=== PATIENT | female | born 1985 | race Asian ===

== ENCOUNTER 2017-01-03 21:46 | Emergency (ER) | payer OTHER ==
[2017-01-03] MEDS ORDERED: NS 0.9% 1000 ML* 1,000 ML IV ONE (23:10)
[2017-01-03 23:22] VITALS: BP 102/60
--- NOTE | 2017-01-04 00:39 | UC ---
I, Eliu,Nic, scribed for Nayeli Jimenez DO on 01/03/17 at 2251 . Abdominal Pain Female HPI - HPI Summary HPI Summary: This 31 y/o female presents to [facility] for gradually worsening RUQ abd pain that started 2 days ago and worse today. Pt reports n/v/d 3 days ago and another bout of watery, explosive diarrhea today. Two episodes of n/v 3 days ago. No blood noted in stool. 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 Ambulation or bumpy road do not make the pain worse. Pt does report subjective fever today and headache. Temperature of 100.1 F is noted at triage. FHx is positive for HTN and DM. Plan of care involving transfer to [facility] is discussed. Ambulance ride is strongly recommended. Pt recently relocated to [place], [place], and she does not know the location of the [facility] and does not have insurance. Plan of care is discussed. She works as professor at [employer]. - History of Current Complaint Chief Complaint: UCAbdominalPain Stated Complaint: ABD PAIN Time Seen by Provider: 01/03/17 22:04 Hx Obtained From: Patient, Medical Records Hx Last Menstrual Period: November 20, 2016 Onset/Duration: Sudden Onset, Lasting Days - 3 days ago, Still Present Timing: Constant Severity Initially: Moderate Severity Currently: Severe Pain Intensity: 9 Location: Discrete At: RUQ, Discrete At: RLQ Radiates: No Character: Sharp Aggravating Factor(s): Nothing Alleviating Factor(s): Nothing Associated Signs and Symptoms: Positive: Fever, Nausea, Vomiting, Diarrhea - 3 episodes in 3 days. Negative: Blood in Stool Allergies/Adverse Reactions: Allergies Allergy/AdvReac Type Severity Reaction Status Date / Time Latex Allergy Rash Verified 01/03/17 22:16 PMH/Surg Hx/FS Hx/Imm Hx Previously Healthy: Yes - Surgical History Surgical History: Yes Surgery Procedure, Year, and Place: tumor on ovary removed Nov 2010 - Family History Known Family History: Positive: Hypertension, Diabetes - Social History Occupation: Employed Full-time Alcohol Use: None Substance Use Type: None Smoking Status (MU): Never Smoked Tobacco Review of Systems Constitutional: Fever Skin: Negative Eyes: Negative ENT: Negative Respiratory: Negative Cardiovascular: Negative Gastrointestinal: Abdominal Pain, Vomiting, Diarrhea Genitourinary: Negative Motor: Negative Neurovascular: Negative Musculoskeletal: Negative Neurological: Negative Psychological: Negative All Other Systems Reviewed And Are Negative: Yes Physical Exam Triage Information Reviewed: Yes Appearance: Well-Appearing, Well-Nourished, Pain Distress - mod to severe Vital Signs: Initial Vital Signs Temp 100.1 F 01/03/17 22:06 Pulse 91 01/03/17 22:06 Resp 18 01/03/17 22:06 BP 99/60 01/03/17 22:06 Pulse Ox 98 01/03/17 22:06 Vital Signs Reviewed: Yes Eyes: Positive: Conjunctiva Clear. Negative: Discharge ENT: Positive: Hearing grossly normal Neck: Positive: Supple, Nontender Respiratory: Positive: Lungs clear, Normal breath sounds, No respiratory distress, No accessory muscle use Cardiovascular: Positive: RRR, No Murmur Abdomen Description: Positive: Soft, Guarding, Other: - diffusely tender most notable at RLQ. Positive for rebound tenderness. Negative psoas and obturator signs.. Negative: CVA Tenderness (R), CVA Tenderness (L), Distended Musculoskeletal: Positive: Strength Intact Neurological: Positive: Alert, Muscle Tone Normal Psychological: Positive: Age Appropriate Behavior Skin Exam: Normal, Other - Warm, Dry, Color Normal Abd Pain Female Course/Dx - Differential Dx/Diagnosis Differential Diagnosis: Appendicitis, Constipation, Gall Bladder Disease, Renal Colic, Urinary Tract Infection Provider Diagnoses: abd pain unknown jignesh - r/o appy - Physician Notification/Consults Discussed Patient Care With: Dioni Rodney (ERP at [facility]) at 2310 PM Time Discussed With Above Provider: 23:10 Instructed by Provider To: Transfer Discharge - Discharge Plan Condition: Stable Disposition: TRANS HIGHER L OF CARE FAC Referrals: Non Staff,Doctor [Primary Care Provider] - The documentation as recorded by the Eliu barclay Soohyun accurately reflects the service I personally performed and the decisions made by , Nayeli Jimenez DO.
== END 2017-01-03 23:35 | disposition short-term general hospital (02) ==
LOC: UCEAST 21:46
DX: R10.11 Right upper quadrant pain (principal); R50.9 Fever, unspecified; R11.2 Nausea with vomiting, unspecified; R19.7 Diarrhea, unspecified; Z32.02 Encounter for pregnancy test, result negative
CPT/HCPCS: 81002; 81025; 87086; 99203; G0463

== ENCOUNTER 2017-01-04 00:11 | Emergency (ER) | payer SELFPAY ==
--- NOTE | 2017-01-04 00:47 | ED ---
Abdominal Pain/Female - HPI Summary HPI Summary: Patient is referred from [facility] for three days of abdominal pain that has become progressively worse. The pain has varied from RLQ to periumbilical over the days , with accompanying nausea, two episodes of diarrhea and a temp. of 100. Her son has had a stomach bug, so at first she thought she might have this, but her pain has become bad enough that she sought evaluation. She has not had pain like this before. - History of Current Complaint Chief Complaint: EDAbdPain Stated Complaint: XFER FROM [facility] Time Seen by Provider: 01/04/17 00:26 Hx Obtained From: Patient Hx Last Menstrual Period: November 20, 2016 ?: No Onset/Duration: Gradual Onset Timing: Constant Severity Initially: Mild Severity Currently: Severe Pain Intensity: 8 Location: Discrete At: RLQ, Umbilical Radiates: No Character: Sharp Aggravating Factor(s): Nothing Alleviating Factor(s): Nothing Associated Signs and Symptoms: Positive: Fever, Decreased Appetite, Nausea, Diarrhea Allergies/Adverse Reactions: Allergies Allergy/AdvReac Type Severity Reaction Status Date / Time Latex Allergy Rash Verified 01/03/17 22:16 PMH/Surg Hx/FS Hx/Imm Hx Previously Healthy: Yes - Cancer History Cancer Type, Location and Year: tumor on right 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 Negative: Chills, Fatigue Negative: Chest Pain Negative: Shortness Of Breath Positive: Abdominal Pain, Diarrhea, Nausea Negative: Myalgia Negative: Headache, Weakness, Paresthesia All Other Systems Reviewed And Are Negative: Yes Physical Exam Triage Information Reviewed: Yes Vital Signs On Initial Exam: Initial Vitals Temp Pulse Resp BP Pulse Ox 99.7 F 75 18 105/57 98 01/04/17 00:14 01/04/17 00:14 01/04/17 00:14 01/04/17 00:14 01/04/17 00:14 Vital Signs Reviewed: Yes Appearance: Positive: Well-Appearing, Well-Nourished, Pain Distress Skin: Positive: Warm, Skin Color Reflects Adequate Perfusion, Dry, Tender Head/Face: Positive: Normal Head/Face Inspection Eyes: Positive: EOMI, RUBÉN, Conjunctiva Clear ENT: Positive: Hearing grossly normal, Pharynx normal Neck: Positive: Supple, Nontender, No Lymphadenopathy Respiratory/Lung Sounds: Positive: Clear to Auscultation, Breath Sounds Present Cardiovascular: Positive: RRR Abdomen Description: Positive: Soft, Mc[place] Tenderness. Negative: Nontender - TTP periumbilical and RLQ with positive rebound, CVA Tenderness (R) , CVA Tenderness (L), Distended, Guarding, Hepatomegaly, Peritoneal Signs, Pulsatile Mass, Splenomegaly Bowel Sounds: Positive: Present Musculoskeletal: Negative: Edema Left, Edema Right Neurological: Positive: Sensory/Motor Intact, Alert, Oriented to Person Place, Time, NV Bundle Intact Distally Psychiatric: Positive: Affect/Mood Appropriate AVPU Assessment: Alert Diagnostics - Vital Signs Vital Signs Temp Pulse Resp BP Pulse Ox 01/04/17 00:14 99.7 F 75 18 105/57 98 - Laboratory Result Diagrams: 01/04/17 01:14 01/04/17 01:14 Lab Statement: Any lab studies that have been ordered have been reviewed, and results considered in the medical decision making process. - CT No standard instances CT Interpretation: Positive (See Comments) - ovarian cyst CT Interpretation Completed By: Radiologist Abdominal Pain Fem Course/Dx - Diagnoses Differential Diagnosis: Positive: Appendicitis, Bowel Obstruction, Constipation , Diverticulitis, Gall Bladder Disease, Hepatitis, Irritable Bowel Syndrome, Ovarian Cyst, Pancreatitis, , Renal Colic, Urinary Tract Infection Provider Diagnoses: Right ovarian cyst - Provider Notifications Discussed Care Of Patient With: Patient care signed out to Dr. Vera. Time Discussed With Above Provider: 02:00 Discharge - Discharge Plan Condition: Stable Disposition: HOME Patient Education Materials: Ovarian Cyst (ED) Referrals: Non Staff,Doctor [Primary Care Provider] - 2 Days Additional Instructions: Please follow up with your primary care physician regarding your visit to the emergency department today. Return to the emergency department with any new or recurring symptoms.
[2017-01-04] MEDS ORDERED: Ondansetron INJ* 2 MG/ML VIAL IV ONE (00:57)
[2017-01-04 01:29] LABS: Hematocrit 36 % (35-47); Hemoglobin 12.3 g/dl (12.0-16.0); Mean Corpuscular HGB Conc 34 g/dl (31-36); Mean Corpuscular Hemoglobin 30 pg (27-31); Mean Corpuscular Volume 88 fL (80-97); Mean Platelet Volume 10 um3 (7.4-10.4); Red Blood Count 4.13 10^6/ul (4.0-5.4); Red Cell Distribution Width 13 % (10.5-15); White Blood Count 8.5 10^3/ul (3.5-10.8)
[2017-01-04 01:30] LABS: Urine Bilirubin Negative (Negative); Urine Glucose Negative (Negative); Urine Nitrite Negative (Negative)
[2017-01-04 01:31] LABS: Add Diff/Slide Review? Slide Review Added; Comments Flag Yes
[2017-01-04 01:49] LABS: ALT 10 U/L (7-52); AST 17 U/L (13-39); Albumin 3.9 g/dL (3.2-5.2); Alkaline Phosphatase 41 U/L (34-104); Amylase 39 U/L (29-103); Anion Gap 5 mmol/L (2-11); BUN/Creatinine Ratio 8.8 (8-20); Blood Urea Nitrogen 6 mg/dL (6-24); C Reactive Protein 6.19 mg/L (< 5.00); CO2 Carbon Dioxide 24 mmol/L (22-32); Calcium 8.5 mg/dL (8.6-10.3); Chloride 107 mmol/L (101-111); EGFR African American 129.8 (>60); EGFR Non-African American 100.9 (>60); Globulin 2.7 g/dL (2-4); Glucose 107 mg/dL (70-100); Lipase 18 U/L (11.0-82.0); Potassium 3.4 mmol/L (3.5-5.0); Sodium 136 mmol/L (133-145); Total Protein 6.6 g/dL (6.4-8.9)
[2017-01-04] MEDS ORDERED: Iohexol 300* (CONTRAST) 10 ML SDV IV ONE (03:16)
[2017-01-04 04:56] VITALS: BP 101/55
--- NOTE | 2017-01-04 08:09 | RAD ---
INDICATION: 3 days periumbilical and RIGHT lower quadrant pain. Nausea, vomiting, diarrhea. Previous tumor resection from the RIGHT ovary in 2011. COMPARISON: None. TECHNIQUE: Multidetector CT images were obtained from the lung bases to the ischial tuberosities with 80 mL Omnipaque 300 IV and oral contrast. Multiplanar reformation. REPORT: Minimal dependent basilar atelectasis. The liver, gallbladder, pancreas, and spleen are unremarkable. Negative for CT abnormality of the upper GI or small bowel. Upper normal 6 mm diameter appendix is visualized overlying the posterior RIGHT paramedial pelvic sidewall reference axial images 116-118 as well as coronal reformatted images 46-49 of 86. Negative for periappendiceal inflammatory change. Unremarkable colon. Physiologic trace dependent free pelvic fluid. Negative for free air or hernias. Normal adrenal glands. Unremarkable kidneys with symmetric nephrograms and pyelograms. Unremarkable ureters and urinary bladder as well as the uterus and LEFT adnexal region. 1.1 x 1.1 cm essentially hypodense lesion at the RIGHT ovary is most consistent with a follicular cyst. Posterior RIGHT para midline 3.0 x 2.2 x 2.5 cm sharply circumscribed near water density structure may represent an exophytic follicular cyst of the RIGHT ovary or a paraovarian cyst. Negative for lymphadenopathy. Unremarkable dominant retroperitoneal vasculature. Negative for suspicious osseous lesions. IMPRESSION: 1. Normal appendix documented. 2. 1.1 x 1.1 cm essentially hypodense lesion at the RIGHT ovary is most consistent with a follicular cyst. Posterior RIGHT para midline 3.0 x 2.2 x 2.5 cm sharply circumscribed near water density structure may represent an exophytic follicular cyst of the RIGHT ovary or a paraovarian cyst. Trace physiologic free fluid in the dependent pelvis.
--- NOTE | 2017-02-19 23:11 | ED ---
tory Beauchamp Timothy, scribed for Ryan Vera MD on 01/04/17 at 0404 . Progress - Progress Note Progress Note: Sara Zafar is a 31 yo female presenting to [facility] as a transfer from [facility] with abd pain, vomiting, and diarrhea since 01/01/17. Her CT A/P showed: small collapsing right ovarian cystr with a small amount of free fluid as well as a 2.6 cm simple appearing non-collapsed right ovarian cyst. Course/Dx - Course Course Of Treatment: Sara Zafar is a 31 yo female presenting with abd pain, vomiting, and diarrhea. After review of her CT A/P indicating right ovarian cyst , she will be discharged with appropriate instructions. - Diagnoses Provider Diagnoses: Right ovarian cyst - Provider Notifications Discussed Care Of Patient With: Patient care signed out to Dr. Vera. Time Discussed With Above Provider: 02:00 The documentation as recorded by the scribe, Maximino Hall accurately reflects the service I personally performed and the decisions made by me, Ryan Vera MD.
== END 2017-01-04 04:54 | disposition home or self-care (01) ==
LOC: ED 00:11
DX: N83.201 Unspecified ovarian cyst, right side (principal); R10.31 Right lower quadrant pain; R50.9 Fever, unspecified; R11.0 Nausea; R19.7 Diarrhea, unspecified
CPT/HCPCS: 36415; 74177; 80053; 81003; 82150; 83690; 84702; 85025; 86140; 96374; 99283; J2405; Q9967

== ENCOUNTER 2017-03-18 00:10 | Emergency (ER) | payer BC, OTHER ==
[2017-03-18] MEDS ORDERED: NS 0.9% 1000 ML* 1,000 ML IV ONE (01:11)
--- NOTE | 2017-03-18 01:56 | ED ---
GI/ HPI - HPI Summary HPI Summary: 31F presents with fever, diarrhea today. She states the diarrhea started at 3pm today and has been watery without any blood. She also develop a fever but has given a dose of ibuprofen at urgent care where was seen prior to here. urgent care told her bp was low. She denies any dizziness or lightheadedness. She denies any abdominal pain or nausea or vomiting. She denies any cough, chest pain, or SOB. She denies eating anything different or any any recent antibiotic usage. She states she is traveling to [facility] this morning. - History of Current Complaint Chief Complaint: EDNauseaVomitDiarrh Time Seen by Provider: 03/18/17 01:10 Stated Complaint: DIARRHEA Pain Intensity: 0 - Allergy/Home Medications Allergies/Adverse Reactions: Allergies Allergy/AdvReac Type Severity Reaction Status Date / Time Latex Allergy Rash Verified 03/18/17 00:15 PMH/Surg Hx/FS Hx/Imm Hx Endocrine/Hematology History: Denies: Hx Diabetes Cardiovascular History: Denies: Hx Hypertension History: Denies: Hx Renal Disease - Cancer History Cancer Type, Location and Year: tumor on right ovary was removed - Surgical History Surgery Procedure, Year, and Place: tumor on ovary removed Nov 2010 Infectious Disease History: No Infectious Disease History: Reports: Hx Shingles Denies: Traveled Outside the in Last 30 Days - Family History Known Family History: Positive: None, Hypertension, Diabetes - Social History Alcohol Use: None Substance Use Type: Reports: None Smoking Status (MU): Never Smoked Tobacco Review of Systems Positive: Fever Negative: Chest Pain Negative: Shortness Of Breath Positive: Diarrhea. Negative: Abdominal Pain, Vomiting, Nausea All Other Systems Reviewed And Are Negative: Yes Physical Exam Triage Information Reviewed: Yes Vital Signs On Initial Exam: Initial Vitals Temp Pulse Resp BP Pulse Ox 97.6 F 77 18 106/64 98 03/18/17 00:15 03/18/17 00:15 03/18/17 00:15 03/18/17 00:15 03/18/17 00:15 Vital Signs Reviewed: Yes Appearance: Positive: Well-Appearing Skin: Positive: Warm, Dry Head/Face: Positive: Normal Head/Face Inspection Eyes: Positive: Normal, Conjunctiva Clear Respiratory/Lung Sounds: Positive: Clear to Auscultation, Breath Sounds Present Cardiovascular: Positive: Normal, RRR Abdomen Description: Positive: Nontender, Soft Bowel Sounds: Positive: Present Diagnostics - Vital Signs Vital Signs Temp Pulse Resp BP Pulse Ox 03/18/17 01:09 98.3 F 03/18/17 00:15 97.6 F 77 18 106/64 98 - Laboratory Result Diagrams: 03/18/17 02:00 03/18/17 02:00 Lab Statement: Any lab studies that have been ordered have been reviewed, and results considered in the medical decision making process. GIGU Course/Dx - Course Course Of Treatment: 31F presents with fever and diarrhea today. was seen at urgent care and told had low bp. bp is 106/72 currently. no abdominal pain. denies any recent antibiotic usage. on exam nontender abdomen. gave liter fluid. denies any dizziness or lightheadness. labs normal. gave loperamide to d/ c with. patient understands and agrees with plan - Diagnoses Differential Diagnoses - Female: Diverticulitis, Diarrhea, Gastroenteritis ( Viral), Gastroenteritis (Bacterial) Provider Diagnoses: Diarrhea Discharge - Discharge Plan Condition: Good Disposition: HOME Prescriptions: Loperamide CAP* [Imodium CAP*] 2 mg PO SEE INSTRUCTIONS #16 cap MDD 8 Patient Education Materials: Acute Diarrhea (ED) Referrals: Non Staff,Doctor [Primary Care Provider] - Additional Instructions: Loperamide take 2 mg (1 tablet) after each loose stool (maximum: 16 mg/day or 8 tablets/day) Zofran every 6 hours as needed for nausea Drink small amounts of fluid as tolerated When able to eat follow BRAT diet: Bananas, rice, applesauce, toast Symptoms likely due to viral gastroenteritis Take ibuprofen or Tylenol for pain as needed every 6 hours Follow up with primary within 5 days Return to ED if develop fever that does not respond to Tylenol or ibuprofen, severe abdominal pain, or any new or worsening symptoms
[2017-03-18 02:37] LABS: Hematocrit 37 % (35-47); Hemoglobin 12.4 g/dl (12.0-16.0); Mean Corpuscular HGB Conc 34 g/dl (31-36); Mean Corpuscular Hemoglobin 29 pg (27-31); Mean Corpuscular Volume 88 fL (80-97); Mean Platelet Volume 11 um3 (7.4-10.4); Red Blood Count 4.23 10^6/ul (4.0-5.4); Red Cell Distribution Width 13 % (10.5-15); White Blood Count 4.3 10^3/ul (3.5-10.8)
[2017-03-18 02:54] LABS: ALT 12 U/L (7-52); AST 24 U/L (13-39); Alkaline Phosphatase 40 U/L (34-104); Anion Gap 8 mmol/L (2-11); BUN/Creatinine Ratio 10.3 (8-20); Blood Urea Nitrogen 7 mg/dL (6-24); CO2 Carbon Dioxide 22 mmol/L (22-32); Calcium 8.7 mg/dL (8.6-10.3); Chloride 106 mmol/L (101-111); EGFR African American 129.8 (>60); EGFR Non-African American 100.9 (>60); Globulin 2.8 g/dL (2-4); Glucose 100 mg/dL (70-100); Potassium 3.5 mmol/L (3.5-5.0); Sodium 136 mmol/L (133-145); Total Protein 6.8 g/dL (6.4-8.9)
[2017-03-18] MEDS ORDERED: Loperamide CAP* 2 MG PO ONE ×2 (03:03→03:09)
[2017-03-18 03:49] VITALS: BP 98/54
== END 2017-03-18 03:46 | disposition home or self-care (01) ==
LOC: ED 00:10
DX: R19.7 Diarrhea, unspecified (principal); R50.9 Fever, unspecified; Z32.02 Encounter for pregnancy test, result negative
CPT/HCPCS: 36415; 80053; 83630; 84702; 85025; 86141; 87045; 87046; 87493; 87899; 96360; 96361; 96374; 96375; 99283; A9270-GY

== ENCOUNTER 2018-04-01 19:54 | Emergency (ER) | payer BC, OTHER ==
[2018-04-01 20:16] VITALS: BP 99/60
--- NOTE | 2018-04-01 20:19 | UC ---
Abdominal Pain Male HPI - HPI Summary HPI Summary: 32 you female presents with periumbilical pain and lower abdominal cramping that began yesterday. She says it began after eating yesterday and lasted about 2-3 hours - mild intensity. [place] ok this morning until she ate lunch - pain returned. Is currently on her menstrual cycle. Denies fever, chills, SOB, chest pain, n/v/d/c, dysuria, hematuria, flank pain, vaginal discharge/odor. - History of Current Complaint Chief Complaint: UCGI Stated Complaint: STOMACH PAIN Time Seen by Provider: 04/01/18 20:19 Hx Obtained From: Patient Onset/Duration: Sudden Onset Severity Initially: Severe Severity Currently: Severe Pain Intensity: 9 Pain Scale Used: 0-10 Numeric - Allergies/Home Medications Allergies/Adverse Reactions: Allergies Allergy/AdvReac Type Severity Reaction Status Date / Time Latex, Natural Rubber Allergy Rash Verified 04/01/18 20:16 Home Medications: Home Medications NK [No Home Medications Reported] 04/01/18 [History Confirmed 04/01/18] PMH/Surg Hx/FS Hx/Imm Hx - Additional Past Medical History Additional PMH: None Previously Healthy: Yes - Surgical History Surgical History: Yes Surgery Procedure, Year, and Place: tumor on ovary removed Nov 2010 - Family History Known Family History: Positive: None, Hypertension, Diabetes - Social History Occupation: Employed Full-time Lives: With Family Alcohol Use: None Substance Use Type: None Smoking Status (MU): Never Smoked Tobacco Review of Systems Constitutional: Negative Skin: Negative Respiratory: Negative Cardiovascular: Negative Gastrointestinal: Abdominal Pain Genitourinary: Negative Motor: Negative Neurovascular: Negative Neurological: Negative Psychological: Negative All Other Systems Reviewed And Are Negative: Yes Physical Exam - Summary Physical Exam Summary: GENERAL: NAD. WDWN. No pain distress. SKIN: No rashes, sores, lesions, or open wounds. NECK: Supple. Nontender. No lymphadenopathy. CHEST: CTAB. No r/r/w. No accessory muscle use. Breathing comfortably and in no distress. CV: RRR. Without m/r/g. Pulses intact. Brisk cap refill. ABDOMEN: Generalized mild abdominal TTP. No focal tenderness. No organomegaly. No CVA tenderness. Bowel sounds present. Neg burnette signs. Neg heel strike/psoas /obturator. NEURO: Alert. CN II-XII grossly intact. PSYCH: Age appropriate behavior. Triage Information Reviewed: Yes Vital Signs: Initial Vital Signs Temp 98.0 F 04/01/18 20:12 Pulse 65 04/01/18 20:12 Resp 19 04/01/18 20:12 BP 99/60 04/01/18 20:12 Pulse Ox 100 04/01/18 20:12 Abd Pain Male Course/Dx - Course Course Of Treatment: CT: IMPRESSION: NONCONTRAST IMAGING SHOWS A 2.7 CM RIGHT ADNEXAL CYST AND POSSIBLE LEFT-SIDED. HYDROSALPINX. CONSIDER FOLLOW-UP PELVIC SONOGRAPHY. MODERATE RETAINED STOOL. NO ADDITIONAL. SIGNIFICANT FINDINGS IDENTIFIED ON NONCONTRAST IMAGING. Glucose: 111 - ate about 2 hours prior. UA : Trace glucose, trace leuks, 3+ blood, trace ketone, 1+ protein. She is currently on her menses. I had a long discussion with the patient that I have no obvious explanation for her generalized abdominal pain after meals. I advised her that if her symptoms persist she should be seen in the ED for further eval as she does not have a PCP. Will send her urine for culture given trace leuks although without urinary symptoms today. F/u with Dr. Slater, whom she has seen in the past, for her CT findings today. She was agreeable to this plan. - Differential Dx/Clinical Impression Provider Diagnoses: Generalized abdominal pain Discharge - Sign-Out/Discharge Documenting (check all that apply): Discharge/Admit/Transfer - Discharge Plan Condition: Stable Disposition: HOME Patient Education Materials: Pelvic Pain in Women (ED), Abdominal Pain (ED) Referrals: No Primary Care Phys,NOPCP [Primary Care Provider] - Fredi Slater MD [Medical Doctor] - Additional Instructions: If you develop a fever, shortness of breath, chest pain, new or worsening symptoms - please call your PCP or go to the ED. 1) May try over the counter Zantac once a day for your upset stomach 2) Please follow up with Dr. Slater regarding your finding on your scan today 3) If your symptoms worsen or persist - please go to the ER for further evaluation - Billing Disposition and Condition Condition: STABLE Disposition: HOME
--- NOTE | 2018-04-01 21:21 | RAD ---
INDICATION: Generalized abdominal pain. COMPARISON: CT abdomen pelvis January 04, 2017 TECHNIQUE: Noncontrast axial source images were obtained from the hemidiaphragms to the symphysis pubis. This examination was ordered using a renal stone protocol which is performed without oral or intravenous contrast and therefore has inherent limitations when used to evaluate other intra-abdominal or intrapelvic pathology. Consider conventional contrast enhanced imaging if clinically indicated. Lung bases: The lung bases are clear. Liver: There is mild hepatomegaly. Noncontrast imaging shows no evidence of a hepatic mass or ductal dilatation. Gallbladder: The gallbladder is contracted and therefore evaluation is limited. No calcified stones are seen, however. Spleen: The spleen is normal in size. The noncontrast CT appearance is normal. Pancreas: Noncontrast imaging shows no pancreatic mass or ductal dilitation. Adrenal glands: No masses are identified. Kidneys/Bladder: There is no evidence of nephrolithiasis or CT evidence of hydronephrosis. Noncontrast imaging shows no evidence of a renal mass. The bladder is unremarkable.. Adenopathy: There is no evidence of intraperitoneal or retroperitoneal adenopathy. Evaluation is limited without oral contrast. Fluid collections: There are no free or localized fluid collections. Vessels: The aorta and iliac vessels are normal in caliber. There are no significant atherosclerotic changes. The IVC appears normal Pelvic organs: The uterus appears mildly prominent. There may be left-sided hydrosalpinx. There is a 2.7 cm right adnexal cyst. Consider follow-up ultrasonography GI tract: Evaluation of the bowel is limited without oral contrast. The stomach, small bowel, and lower GI tract appear grossly normal. There is moderate stool in the colon, however. There are no obstructive findings. The appendix is not definitively visualized. Soft tissues: No soft tissue abnormalities of the extraperitoneal abdomen or pelvis are identified. Osseous structures: There are no acute osseous findings. IMPRESSION: NONCONTRAST IMAGING SHOWS A 2.7 CM RIGHT ADNEXAL CYST AND POSSIBLE LEFT-SIDED HYDROSALPINX. CONSIDER FOLLOW-UP PELVIC SONOGRAPHY. MODERATE RETAINED STOOL. NO ADDITIONAL SIGNIFICANT FINDINGS IDENTIFIED ON NONCONTRAST IMAGING
--- NOTE | 2018-04-03 15:52 | UC ---
- Progress Note Progress Note: 04/03/2018 Urine culture: negative. Pt w/o any urinary symptoms. Pt was not Rx antibiotics No change. Rebecca Colbert PA-C Discharge - Sign-Out/Discharge Documenting (check all that apply): Discharge/Admit/Transfer - D/C home - Discharge Plan Condition: Stable Disposition: HOME Patient Education Materials: Pelvic Pain in Women (ED), Abdominal Pain (ED) Referrals: Fredi Slater MD [Medical Doctor] - No Primary Care Phys,NOPCP [Primary Care Provider] - Additional Instructions: If you develop a fever, shortness of breath, chest pain, new or worsening symptoms - please call your PCP or go to the ED. 1) May try over the counter Zantac once a day for your upset stomach 2) Please follow up with Dr. Slater regarding your finding on your scan today 3) If your symptoms worsen or persist - please go to the ER for further evaluation - Billing Disposition and Condition Condition: STABLE Disposition: HOME
== END 2018-04-01 21:40 | disposition home or self-care (01) ==
LOC: UCEAST 19:54
DX: R10.84 Generalized abdominal pain (principal)
CPT/HCPCS: 74176; 81003; 87086; 99211; G0463

== ENCOUNTER 2018-04-07 09:09 | Emergency (ER) | payer BC ==
[2018-04-07 10:29] LABS: ABS Basophils 0 10^3/ul (0-0.2); ABS Eosinophils 0 10^3/ul (0-0.6); ABS Monocytes 0.2 10^3/ul (0-0.8); ABS Neutrophils 1.5 10^3/ul (1.5-7.7); ABS Nucleated RBC 0 10^3/ul; Eosinophil % 1.2 % (0-6); Hematocrit 37 % (35-47); Hemoglobin 12.7 g/dl (12.0-16.0); Mean Corpuscular HGB Conc 34 g/dl (31-36); Mean Corpuscular Hemoglobin 31 pg (27-31); Mean Corpuscular Volume 89 fL (80-97); Mean Platelet Volume 9.6 um3 (7.4-10.4); Nucleated Red Blood Cells % 0.1; Platelet Count 135 10^3/ul (150-450); Red Blood Count 4.16 10^6/ul (4.0-5.4); Red Cell Distribution Width 13 % (10.5-15); Urine Appearance Clear; Urine Blood Negative (Negative); Urine Color Yellow; Urine Ketones Negative (Negative); Urine Protein Negative (Negative); Urine Specific Gravity 1.018 (1.010-1.030); Urine Urobilinogen Negative (Negative); White Blood Count 2.7 10^3/ul (3.5-10.8)
--- NOTE | 2018-04-07 10:36 | RAD ---
Indication: RIGHT upper quadrant pain today. General abdominal pain for one week. Comparison: April 01, 2018 CT. Technique: RIGHT upper quadrant ultrasound. Report: Appropriate direction flow documented in the portal and hepatic veins. 14 cm liver is normal in echogenicity. Negative for focal hepatic lesions. Negative for intrahepatic biliary dilatation. 3 mm common bile duct. Incompletely distended gallbladder limiting assessment. Upper normal range 3 mm gallbladder wall. No visualized gallstones or biliary sludge. Negative for pericholecystic fluid. Negative for sonographic Govea's sign. Unremarkable well visualized pancreas. Negative for ascites. 10.2 x 4.4 x 4.3 cm RIGHT kidney is unremarkable. IMPRESSION: Incompletely distended gallbladder limiting assessment without gross abnormality. Negative RIGHT upper quadrant ultrasound.
[2018-04-07 11:54] VITALS: BP 117/73
--- NOTE | 2018-04-07 15:37 | ED ---
Angel Beauchamp Gabriel, scribed for Luca Grajeda MD on 04/07/18 at 0931 . Abdominal Pain/Female - HPI Summary HPI Summary: This patient is a 32 year old F presenting to [facility] with a chief complaint of ABD pain that began a week ago. Pt was seen at [address] was done, but "nothing was seen." She states she still has ABD pain, only after meals and states the pain is located at her gallbladder. The patient rates the pain 5/10 in severity. Patient denies n/v/d and fever. 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 She denies any vaginal bleeding or discharge. - History of Current Complaint Chief Complaint: EDAbdPain Stated Complaint: ABD PAIN Time Seen by Provider: 04/07/18 09:17 Hx Obtained From: Patient Hx Last Menstrual Period: now Onset/Duration: Lasting Weeks, Still Present Timing: Intermittent Episode Lasting Severity Initially: Moderate Severity Currently: Moderate Pain Intensity: 5 Pain Scale Used: 0-10 Numeric Location: Discrete At: RUQ Radiates: No Aggravating Factor(s): Food Associated Signs and Symptoms: Positive: Negative - NVD and fever Allergies/Adverse Reactions: Allergies Allergy/AdvReac Type Severity Reaction Status Date / Time Latex, Natural Rubber Allergy Rash Verified 04/07/18 09:12 PMH/Surg Hx/FS Hx/Imm Hx Endocrine/Hematology History: Denies: Hx Diabetes, Hx Thyroid Disease Cardiovascular History: Denies: Hx Auto Implanted Cardiovert Defib, Hx Coronary Artery Disease, Hx Hypertension Respiratory History: Denies: Hx Asthma, Hx Chronic Obstructive Pulmonary Disease (COPD), Hx Pneumonia GI History: Denies: Hx Gall Bladder Disease, Hx Gastroesophageal Reflux Disease, Hx Ulcer History: Denies: Hx Renal Disease - Cancer History Cancer Type, 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 Negative: Vomiting, Diarrhea, Nausea All Other Systems Reviewed And Are Negative: Yes Physical Exam - Summary Physical Exam Summary: GENERAL: Patient is a well developed and nourished F who is lying comfortable in the stretcher. Patient is not in any acute respiratory distress. HEAD AND FACE: Normocephalic EYES: PERRLA, EOMI x 2. EARS: Hearing grossly intact. MOUTH: Oropharynx within normal limits. NECK: Supple, trachea is midline, no adenopathy, no JVD, no carotid bruit. CHEST: Symmetric, no tenderness at palpation LUNGS: Clear to auscultation bilaterally. No wheezing or crackles. CVS: Regular rate and rhythm, S1 and S2 present, no murmurs or gallops appreciated. ABDOMEN: Soft, TTP is RUQ. Bowel sounds are normal. No abdominal abnormal pulsations. EXTREMITIES: Full ROM in all major joints, no edema, no cyanosis or clubbing. NEURO: Alert and oriented x 3. No acute neurological deficits. Speech is normal and follows commands. SKIN: Dry and warm Triage Information Reviewed: Yes Vital Signs On Initial Exam: Initial Vitals Temp Pulse Resp BP Pulse Ox 97.2 F 77 16 105/68 99 04/07/18 09:10 04/07/18 09:10 04/07/18 09:10 04/07/18 09:10 04/07/18 09:10 Vital Signs Reviewed: Yes Diagnostics - Vital Signs Vital Signs Temp Pulse Resp BP Pulse Ox 04/07/18 09:10 97.2 F 77 16 105/68 99 - Laboratory Lab Results: Lab Results 04/07/18 04/07/18 04/07/18 Range/Units 10:08 10:08 10:08 WBC 2.7 L (3.5-10.8) 10^3/ul RBC 4.16 (4.0-5.4) 10^6/ul Hgb 12.7 (12.0-16.0) g/dl Hct 37 (35-47) % MCV 89 (80-97) fL MCH 31 (27-31) pg MCHC 34 (31-36) g/dl RDW 13 (10.5-15) % Plt Count 135 L (150-450) 10^3/ul MPV 9.6 (7.4-10.4) um3 Neut % (Auto) 56.1 (38-83) % Lymph % (Auto) 36.0 (25-47) % Davison % (Auto) 6.3 (0-7) % Eos % (Auto) 1.2 (0-6) % Baso % (Auto) 0.4 (0-2) % Absolute Neuts (auto) 1.5 (1.5-7.7) 10^3/ul Absolute Lymphs (auto) 1.0 (1.0-4.8) 10^3/ul Absolute Monos (auto) 0.2 (0-0.8) 10^3/ul Absolute Eos (auto) 0 (0-0.6) 10^3/ul Absolute Basos (auto) 0 (0-0.2) 10^3/ul Absolute Nucleated RBC 0 10^3/ul Nucleated RBC % 0.1 Sodium 141 (139-145) mmol/L Potassium 3.6 (3.5-5.0) mmol/L Chloride 108 (101-111) mmol/L Carbon Dioxide 29 (22-32) mmol/L Anion Gap 4 (2-11) mmol/L BUN 10 (6-24) mg/dL Creatinine 0.74 (0.51-0.95) mg/dL Est GFR ( Amer) 117.0 (>60) Est GFR (Non-Af Amer) 91.0 (>60) BUN/Creatinine Ratio 13.5 (8-20) Glucose 72 (70-100) mg/dL Lactic Acid (0.5-2.0) mmol/L Calcium 9.3 (8.6-10.3) mg/dL Total Bilirubin 0.60 (0.2-1.0) mg/dL AST 17 (13-39) U/L ALT 7 (7-52) U/L Alkaline Phosphatase 50 (34-104) U/L C-Reactive Protein 3.13 (< 5.00) mg/L Total Protein 7.0 (6.4-8.9) g/dL Albumin 4.2 (3.2-5.2) g/dL Globulin 2.8 (2-4) g/dL Albumin/Globulin Ratio 1.5 (1-3) Lipase 34 (11.0-82.0) U/L Beta HCG, Quant < 0.60 mIU/mL Urine Color Yellow Urine Appearance Clear Urine pH 6.0 (5-9) Ur Specific [place] 1.018 (1.010-1.030) Urine Protein Negative (Negative) Urine Ketones Negative (Negative) Urine Blood Negative (Negative) Urine Nitrate Negative (Negative) Urine Bilirubin Negative (Negative) Urine Urobilinogen Negative (Negative) Ur Leukocyte Esterase Negative (Negative) Urine Glucose Negative (Negative) 04/07/18 Range/Units 10:08 WBC (3.5-10.8) 10^3/ul RBC (4.0-5.4) 10^6/ul Hgb (12.0-16.0) g/dl Hct (35-47) % MCV (80-97) fL MCH (27-31) pg MCHC (31-36) g/dl RDW (10.5-15) % Plt Count (150-450) 10^3/ul MPV (7.4-10.4) um3 Neut % (Auto) (38-83) % Lymph % (Auto) (25-47) % Davison % (Auto) (0-7) % Eos % (Auto) (0-6) % Baso % (Auto) (0-2) % Absolute Neuts (auto) (1.5-7.7) 10^3/ul Absolute Lymphs (auto) (1.0-4.8) 10^3/ul Absolute Monos (auto) (0-0.8) 10^3/ul Absolute Eos (auto) (0-0.6) 10^3/ul Absolute Basos (auto) (0-0.2) 10^3/ul Absolute Nucleated RBC 10^3/ul Nucleated RBC % Sodium (139-145) mmol/L Potassium (3.5-5.0) mmol/L Chloride (101-111) mmol/L Carbon Dioxide (22-32) mmol/L Anion Gap (2-11) mmol/L BUN (6-24) mg/dL Creatinine (0.51-0.95) mg/dL Est GFR ( Amer) (>60) Est GFR (Non-Af Amer) (>60) BUN/Creatinine Ratio (8-20) Glucose (70-100) mg/dL Lactic Acid 1.1 (0.5-2.0) mmol/L Calcium (8.6-10.3) mg/dL Total Bilirubin (0.2-1.0) mg/dL AST (13-39) U/L ALT (7-52) U/L Alkaline Phosphatase (34-104) U/L C-Reactive Protein (< 5.00) mg/L Total Protein (6.4-8.9) g/dL Albumin (3.2-5.2) g/dL Globulin (2-4) g/dL Albumin/Globulin Ratio (1-3) Lipase (11.0-82.0) U/L Beta HCG, Quant mIU/mL Urine Color Urine Appearance Urine pH (5-9) Ur Specific [place] (1.010-1.030) Urine Protein (Negative) Urine Ketones (Negative) Urine Blood (Negative) Urine Nitrate (Negative) Urine Bilirubin (Negative) Urine Urobilinogen (Negative) Ur Leukocyte Esterase (Negative) Urine Glucose (Negative) Result Diagrams: 04/07/18 10:08 04/07/18 10:08 Lab Statement: Any lab studies that have been ordered have been reviewed, and results considered in the medical decision making process. - Additional Comments Diagnostic Additional Comments: Gallbladder US reveals, per radiologist, Incompletely distended gallbladder limiting assessment without gross abnormality. Negative RIGHT upper quadrant ultrasound. ED physician has reviewed this radiology report. Abdominal Pain Fem Course/Dx - Course Course Of Treatment: This patient is a 32 year old F presenting to [facility] with a chief complaint of ABD pain that began a week ago. Pt was seen at [address] was done and nothing was seen. She states she still has ABD pain, only after meals and states the pain is located at her gallbladder. The patient rates the pain 5/10 in severity. Patient denies n/v/d and fever. 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 Gallbladder US reveals, per radiologist, Incompletely distended gallbladder limiting assessment without gross. abnormality. Negative RIGHT upper quadrant ultrasound. Test results with no significant abnormalities with the exception of mild leukopenia and thrombocytopenia. UA was negative for UTI. I Discussed the results of the patient in great details. I suspect patient's pain is likely secondary to an ulcer. Patient will be sent home in the [facility] and is instructed to follow up with GI for further evaluation. I Further commended that the patient follow up with her PCP to repeat her CBC based on low white count and low platelet seen on lab today. She verbalizes understanding and agrees with the plan. Strict return precautions given. Dx ABD pain. - Diagnoses Provider Diagnoses: Abdominal pain Discharge - Sign-Out/Discharge Documenting (check all that apply): Discharge/Admit/Transfer - Discharge Plan Condition: Stable Disposition: HOME Prescriptions: Pantoprazole TAB (NF) [Protonix TAB (NF)] 20 mg PO DAILY 30 Days tab Pantoprazole TAB (NF) [Protonix TAB (NF)] 20 mg PO DAILY #30 tab Patient Education Materials: Peptic Ulcer (ED) Referrals: [facility] [place] PHYSICIAN REFERRAL [Outside] - 3 Days Baldev Melchor MD [Medical Doctor] - 04/11/18 Additional Instructions: RETURN TO THE EMERGENCY DEPARTMENT FOR CHANGING OR WORSENING SYMPTOMS - Billing Disposition and Condition Condition: STABLE Disposition: HOME The documentation as recorded by the Angel barclay Gabriel accurately reflects the service I personally performed and the decisions made by me, Luca Grajeda MD.
== END 2018-04-07 12:10 | disposition home or self-care (01) ==
LOC: ED 09:09
DX: R10.11 Right upper quadrant pain (principal)
CPT/HCPCS: 36415; 76705; 80053; 81003; 83605; 83690; 84702; 85025; 86140; 99282